=== PATIENT | male | born 1960 | race Caucasian/White ===

== ENCOUNTER 2017-03-01 21:56 | Outpatient (CLI) ==
[2017-03-01 22:20] VITALS: BMI 37.5
== END 2017-03-01 21:57 | disposition critical access hospital (66) ==
LOC: AMBL 21:56
PROVIDERS: ATTEND Family Medicine
DX: R55 Syncope and collapse (principal)

== ENCOUNTER 2017-03-01 22:07 | Emergency (ER) ==
--- NOTE | 2017-03-01 22:12 | ED.PDOC ---
General ED Provider: Dr. ROXANNE MCKINNEY-ER Chief Complaint: Alcohol Intoxication Stated Complaint: i passed out Time Seen by Physician: 22:10 Mode of Arrival: Ambulance Information Source: Patient Exam Limitations: No limitations Nursing and Triage Documentation Reviewed and Agree: Yes Neurological Complaint Exam - Syncope/Near Syncope Complaint/Exam Onset/Duration: 30 min ago Symptoms Are: Resolved Episodes Lasting: Seconds Number of Episodes: 1 Frequency of Episodes: 1 Episodes Witnessed: Yes Loss of Consciousness: Yes Associated Head Trauma: Yes Activity at Onset: At rest Aggravating: None Alleviating: Reports: None Associated Signs and Symptoms: Denies: Pain, Decreased oral intake, Vomiting, Diarrhea, GI blood loss, Short of air, Chest pain, Palpitations, Diaphoresis, Lightheadedness, Dizziness, Weakness, AMS, Numbness, Headache, Seizure, Remote head trauma, Recent head trauma JVD Present: No Carotid Bruit Present: No Nystagmus Present: No Gag Reflex Present: Yes Meningeal Signs Positive: No Focal Weakness: Present: None Focal Sensory Loss: Present: None Gait: Normal [id number]: Normal Findings Romberg Test Positive: Yes Babinski Sign: Negative Right, Negative Left Heel to Toe Normal: No Pilgrim-Hallpike Test Positive: No Differential Diagnoses: Dysrhythmia, Hypovolemia, Vasovagal Episode Quality Indicator For Non-Traumatic Chest Pain/Syncope: EKG Performed Review of Systems - Review Of Systems Constitutional: Reports: No symptoms Eyes: Reports: No symptoms Ears, Nose, Mouth, Throat: Reports: No symptoms Respiratory: Reports: No symptoms Cardiac: Reports: Syncope GI: Reports: No symptoms : Reports: No symptoms Musculoskeletal: Reports: No symptoms Skin: Reports: No symptoms Neurological: Reports: No symptoms Endocrine: Reports: No symptoms Hematologic/Lymphatic: Reports: No symptoms All Other Systems: Reviewed and Negative Past Medical History - Past Medical History Endocrine: Reports: Unknown Cardiovascular: Reports: Unknown Respiratory: Reports: Unknown Hematological: Reports: Unknown Gastrointestinal: Reports: Unknown Genitourinary: Reports: Unknown Neuro/Psych: Reports: Unknown Musculoskeletal: Reports: Unknown Cancer: Reports: Unknown - Surgical History General Surgical History: Reports: Unknown - Family History Family History: Reports: Unknown Physical Exam - Physical Exam Appearance: Well-appearing, No pain distress, Well-nourished Eyes: TAYLOR, EOMI, Conjunctiva clear ENT: Ears normal Neck: Supple Respiratory: Airway patent, Breath sounds clear, Breath sounds equal, Respirations nonlabored Cardiovascular: RRR, Pulses normal, No rub, No murmur GI/: Soft, Nontender, No masses, Bowel sounds normal, No Organomegaly Musculoskeletal: Normal strength, ROM intact, No edema, No calf tenderness Skin: Warm, Dry, Normal color Neurological: Sensation intact, Motor intact, Reflexes intact, Cranial nerves intact, Alert, Oriented Psychiatric: Affect appropriate, Mood appropriate, Anxious Interpretation - Radiology Interpretation Radiology Interpretation By: ED Physician Exam Interpreted: CXR, CT Scan - EKG Interpretation Time of EKG #1: 00:34 Rate: Normal Rhythm: Sinus Ectopy: None [place]: NL ST Segment: Normal Critical Care Note - Critical Care Note Total Time (mins): 0 Course - Course Hematology/Chemistry: 03/01/17 22:09 03/01/17 10:10 Orders, Labs, Meds: Lab Review 03/01/17 03/01/17 03/02/17 10:10 22:09 00:07 WBC 15.43 H RBC 5.88 Hgb 16.4 Hct 48.3 MCV 82.1 MCH 27.9 MCHC 34.0 RDW Coeff of Uriel 13.1 Plt Count 241 Immature Gran % (Auto) 0.4 Neut % (Auto) 63.4 Lymph % (Auto) 29.2 [place] % (Auto) 6.2 Eos % (Auto) 0.5 Baso % (Auto) 0.3 Immature Gran # (Auto) 0.1 Neut # 9.8 H Lymph # 4.5 H [place] # 1.0 Eos # 0.1 Baso # 0.0 Puncture Site Lb O2 Saturation 91.0 L ABG pH 7.332 L ABG pCO2 43.2 ABG pO2 66.0 L ABG HCO3 22.9 ABG Total CO2 24 ABG Base Excess -3 L [place] Test + FiO2 % 21.0 Sodium 137 Potassium 3.8 Chloride 103 Carbon Dioxide 20 L Anion Gap 17.8 BUN 13 Creatinine 0.96 Estimated GFR (MDRD) 80.00 BUN/Creatinine Ratio 13.54 Glucose 167 H Calcium 9.3 Total Bilirubin 0.40 AST 16 ALT 20 Alkaline Phosphatase 67 Total Creatine Kinase 171 CK-MB (CK-2) 3.5 CK-MB (CK-2) % 2.43586 Troponin I < 0.0100 Total Protein 6.6 Albumin 3.7 Globulin 2.9 Albumin/Globulin Ratio 1.28 Urine Color Karen Urine Clarity Clear Urine pH 5.5 Ur Specific [place] >=1.030 Urine Protein 3+ Urine Glucose (UA) Negative Urine Ketones Negative Urine Blood Trace-intact Urine Nitrite Negative Urine Bilirubin 1+ Urine Urobilinogen 0.2 Ur Leukocyte Esterase Negative Urine Microscopic RBC 0-2 Ur Squamous Epith Cells 2-5 Amorphous Sediment 3+ Hyaline Casts 2-5 Granular Casts 2-5 Salicylate Level mg/dL < 5.0 Urine Opiates Screen Negative Ur Oxycodone Screen Negative Urine Methadone Screen Negative Ur Propoxyphene Screen Negative Acetaminophen < 3 L Ur Barbiturates Screen Negative U Tricyclic Antidepress Negative Ur Phencyclidine Scrn Negative Ur Amphetamine Screen Negative U Methamphetamines Scrn Negative U Benzodiazepines Scrn Negative Urine Cocaine Screen Negative U Cannabinoids Screen Negative Plasma/Serum Alcohol 141.4 H Orders Category Date Time Status ABG DRAW REQUEST Stat CARDIO 03/01/17 22:09 Completed EKG-(ED ONLY) Stat CARDIO 03/01/17 22:09 Completed Mapping Pilot [ED REGIONAL TRAINING MANAGER APPLIED] .ONCE EMERGENCY 03/01/17 22:12 Active ED IV/MEDIPORT/POWERPORT .ONCE EMERGENCY 03/01/17 22:10 Active ABG Stat LAB 03/01/17 10:10 Completed BLOOD ALCOHOL Stat LAB 03/01/17 10:10 Completed CBC W/ AUTO DIFF Stat LAB 03/01/17 22:09 Completed COMPREHENSIVE METABOLIC PANEL Stat LAB 03/01/17 10:10 Completed CREATINE KINASE Stat LAB 03/01/17 10:10 Completed SALICYLATE Stat LAB 03/01/17 10:10 Completed TROPONIN I Stat LAB 03/01/17 10:10 Completed TYLENOL LEVEL [ACETAMINOPHEN] Stat LAB 03/01/17 10:10 Completed URINALYSIS C & S IF INDICATED Stat LAB 03/02/17 00:07 Completed URINE DRUG SCREEN (RAPID FOR ED) [DRUG SCREEN, URINE, LAB 03/02/17 00:07 Completed RAPID] Stat 0.9 % Sodium Chloride [Saline Flush] MEDS 03/01/17 22:10 Ordered 1 syr IVF PRN PRN Sodium Chloride 0.9% [Sodium Chloride] 1,000 ml MEDS 03/01/17 22:10 Active IV 100 mls/hr CHEST, 1V AP ONLY Stat RADS 06/23/17 22:[address] CERVICAL SPINE W/O CONTRAST Stat RADS 03/01/17 22:[address] HEAD W/O CONTRAST Stat RADS 03/01/17 22:11 Completed Medications Generic Name Dose Route Start Last Admin Trade Name Nashq PRN Reason Stop Dose Admin Sodium Chloride 1,000 mls @ 100 mls/hr 03/01/17 22:10 03/01/17 22:18 Sodium Chloride IV 03/02/17 08:09 100 mls/hr .Q10H STA Administration Sodium Chloride 1 syr 03/01/17 22:10 03/01/17 22:17 Saline Flush IVF 1 syr PRN PRN Administration To flush IV i wantd to observe mr gaspar longer but he was insistent to leave--i warned him of possible harm including but he was insistent to leave so he left ama Vital Signs: Temp Pulse Resp BP Pulse Ox 03/01/17 22:09 98 F 84 20 118/61 94 L Departure - Departure Time of Disposition: 00:34 Disposition: AMA Discharge Problem: Alcohol intoxication Instructions: Syncope (ED) Condition: Good Pt referred to PMD for follow-up: No Additional Instructions: return prn Allergies/Adverse Reactions: Allergies No Known Drug Allergies Adverse Reaction (Verified 03/01/17 22:17) Home Medications: Ambulatory Orders Albuterol Sulfate [Proventil Hfa] 2 inh INH TID PRN 03/01/17 Fluticasone/Salmeterol [Advair 250-50 Diskus] 1 inh INH BID 03/01/17 Disposition Discussed With: Patient
[2017-03-01 22:16] LABS: BASOPHILS % (AUTO) 0.3 % (0.0-3.0); EOSINOPHILS # (AUTO) 0.1 K/ul (0.0-0.7); EOSINOPHILS % (AUTO) 0.5 % (0.0-7.0); HEMATOCRIT 48.3 % (42.0-52.0); HEMOGLOBIN 16.4 g/dl (14.0-18.0); IMMATURE GRANULOCYTE % (AUTO) 0.4 % (0.0-5.0); LYMPHOCYTES # (AUTO) 4.5 K/uL (0.60-3.4); LYMPHOCYTES % (AUTO) 29.2 (10.0-50.0); MEAN CORPUSCULAR HEMOGLOBIN 27.9 pg (27.0-31.0); MEAN CORPUSCULAR VOLUME 82.1 fl (80.0-94.0); MONOCYTES % (AUTO) 6.2 (0-10); NEUTROPHILS # (AUTO) 9.8 K/ul (2.0-6.9); NEUTROPHILS % (AUTO) 63.4; PLATELET COUNT 241 10^3/uL (140-440); RED BLOOD COUNT 5.88 10^6/ul (4.70-6.10); WHITE BLOOD COUNT 15.43 K/ul (4.2-10.2)
[2017-03-01] MEDS: SODIUM CHLORIDE 1,000 ML IV STA ×2 (22:18)
[2017-03-01 22:20] VITALS: BP 118/61; TEMP 98; BMI 37.5
[2017-03-01 22:52] LABS: ACETAMINOPHEN < 3 ug/ml (10-30); ALANINE AMINOTRANSFERASE 20 U/L (12-78); ALBUMIN 3.7 g/dL (3.4-5.0); ALBUMIN/GLOBULIN RATIO 1.28; ALKALINE PHOSPHATASE 67 U/L (50-136); ANION GAP 17.8; ASPARTATE AMINO TRANSFERASE 16 U/L (15-37); BLOOD UREA NITROGEN 13 mg/dL (7-18); BUN/CREATININE RATIO 13.54; CALCIUM 9.3 mg/dL (8.2-10.2); CARBON DIOXIDE 20 mmol/L (21-32); CHLORIDE 103 mmol/L (98-107); CREATINE KINASE 171 U/L; CREATININE 0.96 mg/dL (0.60-1.10); GLUCOSE 167 mg/dL (70-100); POTASSIUM 3.8 mmol/L (3.5-5.1); SALICYLATE < 5.0 mg/dL (2.8-20.0); SODIUM 137 mmol/L (136-145); TOTAL PROTEIN 6.6 g/dL (6.4-8.2)
[2017-03-01 22:53] LABS: CREATINE KINASE MB 3.5 ng/ml (0.0-3.6)
--- NOTE | 2017-03-01 23:01 | DI ---
EXAM: Chest, one-view HISTORY: Syncope FINDINGS: Cardiac and mediastinal contours are normal. Pulmonary vasculature is normal. Lungs are clear. Bony thorax is unremarkable. IMPRESSION: Within normal limits
--- NOTE | 2017-03-01 23:01 | CT ---
EXAM: CT brain without contrast HISTORY: Syncope TECHNIQUE: CT of the brain without intravenous contrast FINDINGS: There is no acute hemorrhage midline shift or mass effect. No hydrocephalus or abnormal extra-axial fluid collection. No significant parenchymal attenuation abnormality. The bony cranium appears normal. The visualized paranasal sinuses are clear. Soft tissues without significant abnorm ality. IMPRESSION: 1. CT of the brain within normal limits.
[2017-03-01 23:04] LABS: ABG BASE EXCESS -3 (-2.0-2.0); ABG HCO3 22.9 (22.0-26.0); ABG PCO2 43.2 mmHg (35-45); ABG PH 7.332 (7.35-7.45); ABG TCO2 24 (22.0-28.0)
--- NOTE | 2017-03-01 23:04 | CT ---
EXAM: CT cervical spine without intravenous contrast 03/01/2017. Sagittal and coronal reformatted images obtained HISTORY: Trauma COMPARISON: None. FINDINGS: Straightening of the normal cervical lordosis. There is multilevel chronic degenerative disc disease. Severe degenerative disc disease at C4-C5, C 5-C6, C6-C7 and C7-T1. Severe loss of intervertebral disc height with bulky anterior and posterior osteophyte formation. There is multilevel severe spinal and neural foraminal stenosis. There is no evidence of acute fracture or subluxation. IMPRESSION: 1. Severe degenerative disc disease. Multilevel severe spinal and neural foraminal stenosis. 2. No acute post traumatic osseous abnormality. 3. If clinically indicated outpatient MRI may be of benefit.
[2017-03-02 00:10] LABS: BILIRUBIN,URINE 1+ (NEGATIVE); KETONES,URINE Negative (NEGATIVE); LEUKOCYTE ESTERASE ,URINE Negative (NEGATIVE); NITRITE,URINE Negative (NEGATIVE); PH,URINE 5.5 (5-9); PROTEIN,URINE 3+ (NEGATIVE); URINE, BLOOD Trace-intact (NEGATIVE)
[2017-03-02 00:13] LABS: ADD URINE MICROSCOPIC YES
[2017-03-02 00:22] LABS: COCAIN SCREEN,URINE NEGATIVE (NEGATIVE)
[2017-03-04] MEDS ORDERED: SODIUM CHLORIDE 1,000 ML IV STA (09:26)
== END 2017-03-02 00:35 | disposition left against medical advice (07) ==
LOC: ED 22:07
DX: F10.129 Alcohol abuse with intoxication, unspecified (principal); R55 Syncope and collapse
CPT/HCPCS: 36415; 80053; 80306; 80307; 81001; 82550; 82553; 82803; 84484; 85025; 93005; 93010; 96360; 96361; 99284